=== PATIENT | female | born 1990 | race Caucasian/White ===

== ENCOUNTER 2016-10-11 18:30 | Emergency (ER) | payer OTHER ==
[2016-10-11 19:36] VITALS: BP 115/64
--- NOTE | 2016-10-11 19:55 | UC ---
Respiratory Complaint HPI - HPI Summary HPI Summary: The patient comes in today for: 1. Nose is stuffy, sore throat, headache, sinus congestion, sneezing: Onset: 3 days ago. Palliative/provocative: Nothing makes her symptoms better or worse. Quality: Sharp. Region: Frontal headache. Severity: 5/10 headache. Time: Comes and goes. Associated symptoms: Fever: none Cough: None. Rhinitis: Mucuous, clear Previous treatment; None. Itchy nose: NOne; Strep exposure: None. * - History of Current Complaint Chief Complaint: UCGeneralIllness Stated Complaint: SORE THROAT RUNNY NOSE HEADACHE COUGH Time Seen by Provider: 10/11/16 19:47 Hx Obtained From: Patient Hx Last Menstrual Period: 09/29/16 - Allergies/Home Medications Allergies/Adverse Reactions: Allergies Allergy/AdvReac Type Severity Reaction Status Date / Time Amoxicillin Allergy Severe Anaphylatic Verified 10/11/16 19:36 Shock Penicillins Allergy Severe Anaphylatic Verified 10/11/16 19:36 Shock Sulfa Drugs Allergy Severe Anaphylatic Verified 10/11/16 19:36 Shock PMH/Surg Hx/FS Hx/Imm Hx Previously Healthy: Yes Endocrine History Of: Denies: Diabetes, Thyroid Disease, Hyperthyroidism, Hypothyroidism, Dyslipidemia Cardiovascular History Of: Denies: Cardiac Disorders, Hypertension, Pacemaker/ICD, Myocardial Infarction , Congestive Heart Failure, Atrial Fibrillation, Deep Vein Thrombosis, Bleeding Disorders Respiratory History Of: Denies: COPD, Asthma, Bronchitis, Pneumonia, Pulmonary Embolism GI/ History Of: Denies: Gastroesophageal Reflux, Ulcer, Gastrointestinal Bleed, Gall Bladder Disease, Kidney Stones, Diverticulitis, Renal Disease, Urosepsis Neurological History Of: Denies: TIA, CVA, Dementia, Seizures, Migraine Psychological History Of: Denies: Anxiety, Depression, Bipolar Disorder, Schizophrenia, Post Traumatic Stress Disorder Cancer History Of: Denies: Lung Cancer, Colorectal Cancer, Breast Cancer, Cervical Cancer Other History Of: Negative For: HIV, Hepatitis B, Hepatitis C, Anticoagulant Therapy - Surgical History Surgical History: Yes Surgery Procedure, Year, and Place: nasal surgery - Family History Known Family History: Positive: Hypertension, Diabetes - Social History Occupation: Employed Full-time Alcohol Use: Occasionally Substance Use Type: None Smoking Status (MU): Never Smoked Tobacco Have You Smoked in the Last Year: No - Immunization History Most Recent Influenza Vaccination: not this season Review of Systems Constitutional: Negative Skin: Negative Eyes: Negative ENT: Sore Throat, Nasal Discharge Respiratory: Negative Cardiovascular: Negative Gastrointestinal: Negative Genitourinary: Negative All Other Systems Reviewed And Are Negative: Yes Physical Exam Triage Information Reviewed: Yes Appearance: Well-Appearing, No Pain Distress, Well-Nourished Vital Signs: Initial Vital Signs Temp 99.4 F 10/11/16 19:32 Pulse 82 10/11/16 19:32 Resp 16 10/11/16 19:32 BP 115/64 10/11/16 19:32 Pulse Ox 99 10/11/16 19:32 Vital Signs Reviewed: Yes Eyes: Positive: Conjunctiva Clear. Negative: Discharge ENT: Positive: Hearing grossly normal, Nasal congestion, Nasal drainage - Clear , Other: - Boggy and pale nasal mucosa. Negative: Pharyngeal erythema, TM bulging, TM dull, TM red, Tonsillar swelling, Tonsillar exudate Dental: Negative: Gross Decay/Caries @, Dental Fracture @ Neck: Positive: Supple, Nontender, No Lymphadenopathy. Negative: Nuchal Rigidity Cardiovascular: Positive: RRR, No Murmur Abdomen Description: Positive: Nontender, No Organomegaly, Soft. Negative: Distended, Guarding Musculoskeletal: Positive: Strength Intact, ROM Intact, No Edema Neurological: Positive: Alert, Muscle Tone Normal Psychological: Positive: Age Appropriate Behavior, Consolable Skin: Negative: rashes, breakdown UC Diagnostic Evaluation - Laboratory O2 Sat by Pulse Oximetry: 99 Respiratory Course/Dx - Course Course Of Treatment: Patient told that her symptoms and physical exam are more consistent with allergies and recommended treatment for that. She agreed. - Differential Dx/Diagnosis Provider Diagnoses: Allergic rhinitis Discharge - Discharge Plan Condition: Stable Disposition: HOME Patient Education Materials: Allergic Rhinitis (ED) Forms: *Work Release Referrals: Non Staff,Doctor [Primary Care Provider] - Additional Instructions: Please use the [id number] non-sedating antihistamine medications without a decongestant (Gabriela, Zyrtec, loratidine) during the day. At night, you can use the hydroxyzine. Use any asht-xou-ackepyr steroid nasal spray. If these don't help, you may start the Singulair.
== END 2016-10-11 20:17 | disposition home or self-care (01) ==
LOC: UCCORT 18:30
DX: J30.9 Allergic rhinitis, unspecified (principal); Z88.0 Allergy status to penicillin; Z88.2 Allergy status to sulfonamides
CPT/HCPCS: 99212; G0463

== ENCOUNTER 2017-02-19 11:09 | Emergency (ER) | payer OTHER ==
[2017-02-19 11:27] VITALS: BP 110/57
--- NOTE | 2017-02-19 11:38 | UC ---
Throat Pain/Nasal Steve HPI - HPI Summary HPI Summary: sore throat x 1 day + nasal congestion, no cough, no fever or chills - History of Current Complaint Chief Complaint: UCRespiratory Stated Complaint: SORE THROAT HEADACHE ACHY Time Seen by Provider: 02/19/17 11:31 Hx Obtained From: Patient Hx Last Menstrual Period: 6 mos ?: No Onset/Duration: Gradual Onset, Lasting Days - 1, Still Present Severity: Moderate Cough: None Associated Signs & Symptoms: Positive: Nasal Discharge. Negative: Dysphagia, FB Sensation, Drooling, Wheezing, Hoarseness, Sinus Discomfort, Fever, Rash - Allergies/Home Medications Allergies/Adverse Reactions: Allergies Allergy/AdvReac Type Severity Reaction Status Date / Time Amoxicillin Allergy Severe Anaphylatic Verified 02/19/17 11:26 Shock Penicillins Allergy Severe Anaphylatic Verified 02/19/17 11:26 Shock Sulfa Drugs Allergy Severe Anaphylatic Verified 02/19/17 11:26 Shock Home Medications: Home Medications Menthol (Mouth-Throat) [Cough Drops] 7 mg MT BID PRN 02/19/17 [History Confirmed 02/19/17] PMH/Surg Hx/FS Hx/Imm Hx Previously Healthy: Yes Other History Of: Negative For: HIV, Hepatitis B, Hepatitis C, Anticoagulant Therapy - Surgical History Surgical History: Yes Surgery Procedure, Year, and Place: nasal surgery - Family History Known Family History: Positive: Hypertension, Diabetes - Social History Alcohol Use: Occasionally Substance Use Type: None Smoking Status (MU): Never Smoked Tobacco Have You Smoked in the Last Year: No - Immunization History Most Recent Influenza Vaccination: not this season Review of Systems Constitutional: Chills, Fatigue Skin: Negative Eyes: Negative ENT: Sore Throat, Nasal Discharge Respiratory: Negative Cardiovascular: Negative Gastrointestinal: Negative Is Patient Immunocompromised?: No All Other Systems Reviewed And Are Negative: Yes Physical Exam Triage Information Reviewed: Yes Appearance: Well-Appearing, No Pain Distress, Well-Nourished Vital Signs: Initial Vital Signs Temp 99.6 F 02/19/17 11:19 Pulse 101 02/19/17 11:19 Resp 20 02/19/17 11:19 BP 110/57 02/19/17 11:19 Pulse Ox 98 02/19/17 11:19 Vital Signs Reviewed: Yes Eyes: Positive: Conjunctiva Clear ENT: Positive: Normal ENT inspection, Hearing grossly normal, Pharyngeal erythema, TMs normal Neck: Positive: Supple, Nontender, No Lymphadenopathy Respiratory: Positive: Chest non-tender, Lungs clear, Normal breath sounds Cardiovascular: Positive: Tachycardia Abdominal Exam: Normal Abdomen Description: Positive: Nontender, Soft Skin Exam: Normal Skin: Negative: rashes Throat Pain/Nasal Course/Dx - Differential Dx/Diagnosis Provider Diagnoses: pharyngitis Discharge - Discharge Plan Condition: Stable Disposition: HOME Patient Education Materials: Pharyngitis (ED) Referrals: Non Staff,Doctor [Primary Care Provider] - If Needed Additional Instructions: negative rapid strep viral sore throat cont. with rest, increase fluid, take Tylenol as needed for pain or fever follow up as needed
== END 2017-02-19 11:55 | disposition home or self-care (01) ==
LOC: UCCORT 11:09
DX: J02.9 Acute pharyngitis, unspecified (principal); R00.0 Tachycardia, unspecified; Z88.0 Allergy status to penicillin; Z88.2 Allergy status to sulfonamides
CPT/HCPCS: 87651; 99211; G0463

== ENCOUNTER 2017-10-25 14:15 | Emergency (ER) | payer OTHER ==
[2017-10-25 14:41] VITALS: BP 115/63
--- NOTE | 2017-10-25 14:57 | UC ---
Throat Pain/Nasal Steve HPI - HPI Summary HPI Summary: 27 y/o female presents to the urgent care c/o SORE THROAT, FEVER, HEAD ACHE, CHILLS X1 DAY - History of Current Complaint Chief Complaint: UCGeneralIllness Stated Complaint: SORE THROAT HEADACHE FEVER CHILLS Time Seen by Provider: 10/25/17 14:56 Hx Obtained From: Patient Hx Last Menstrual Period: 10/02/17 Onset/Duration: Gradual Onset, Lasting Days - 3 days, Still Present, Worse Since - today Severity: Moderate Pain Intensity: 6 Pain Scale Used: 0-10 Numeric Cough: None Associated Signs & Symptoms: Positive: Dysphagia, Fever - Epiglottits Risk Factors Epiglottis Risk Factors: Negative - Allergies/Home Medications Allergies/Adverse Reactions: Allergies Allergy/AdvReac Type Severity Reaction Status Date / Time MS Amoxicillin [Amoxicillin] Allergy Severe Anaphylatic Verified 02/19/17 11:26 Shock MS Penicillins [Penicillins] Allergy Severe Anaphylatic Verified 02/19/17 11:26 Shock MS Sulfa Drugs [Sulfa Drugs] Allergy Severe Anaphylatic Verified 02/19/17 11:26 Shock Home Medications: Home Medications D-Methorphan/PE/Acetaminophen [Day Multi-Symp Flu-Severe Cold] 1 each PO DAILY 10/25/17 [History Confirmed 10/25/17] Etonogestrel [Nexplanon] 68 mg IMPLANT DAILY 10/25/17 [History Confirmed ] PMH/Surg Hx/FS Hx/Imm Hx Previously Healthy: Yes - Pt denies PMHX Other History Of: Negative For: HIV, Hepatitis B, Hepatitis C, Anticoagulant Therapy - Surgical History Surgical History: Yes Surgery Procedure, Year, and Place: nasal surgery - Family History Known Family History: Positive: Hypertension, Diabetes Family History: Dyslipidemia - Social History Occupation: Employed Full-time Lives: With Family Alcohol Use: Occasionally Substance Use Type: None Smoking Status (MU): Never Smoked Tobacco Have You Smoked in the Last Year: No - Immunization History Most Recent Influenza Vaccination: not this season Review of Systems Constitutional: Fever, Chills Skin: Negative Eyes: Negative ENT: Sore Throat Respiratory: Negative Cardiovascular: Negative Gastrointestinal: Negative Genitourinary: Negative Motor: Negative Neurovascular: Negative Musculoskeletal: Negative Neurological: Negative Psychological: Negative Is Patient Immunocompromised?: No All Other Systems Reviewed And Are Negative: Yes Physical Exam - Summary Physical Exam Summary: VITAL SIGNS: Reviewed. GENERAL: Patient is a well developed and nourished female who is sitting comfortable in the examining table. Patient is not in any acute respiratory distress. HEAD AND FACE: No signs of trauma. No ecchymosis, hematomas or skull depressions. No sinus tenderness. EYES: PERRLA, EOMI x 2, No injected conjunctiva, no nystagmus. No photophobia. EARS: Hearing grossly intact. Ear canals and tympanic membranes are within normal limits. MOUTH: Positive pharynx with erythema, exudates, palatal petechiae. B/L tonsillar enlargement with exudate. Uvula in midline. NECK: Supple, trachea is midline, Positive anterior cervical lymphadenopathy, no JVD, no carotid bruit, no c-spine tenderness, neck with full ROM. No meningeal signs, no Kernig's or brudzinskis signs. CHEST: Symmetric, no tenderness at palpation LUNGS: Clear to auscultation bilaterally. No wheezing or crackles. CVS: Regular rate and rhythm, S1 and S2 present, no murmurs or gallops appreciated. ABDOMEN: Soft, non-tender. No signs of distention. No rebound no guarding, and no masses palpated. Bowel sounds are normal. EXTREMITIES: FROM in all major joints, no edema, no cyanosis or clubbing. NEURO: Alert and oriented x 3. No acute neurological deficits. Speech is normal and follows commands. SKIN: Dry and warm Triage Information Reviewed: Yes Vital Signs: Initial Vital Signs Temp 99.9 F 10/25/17 14:34 Pulse 103 10/25/17 14:34 Resp 15 10/25/17 14:34 BP 115/63 10/25/17 14:34 Pulse Ox 99 10/25/17 14:34 Throat Pain/Nasal Course/Dx - Differential Dx/Diagnosis Differential Diagnosis/HQI/PQRI: Laryngitis, Mononucleosis, Pharyngitis, Tonsillitis, Other Provider Diagnoses: 1- Viral phryngitis Discharge - Discharge Plan Condition: Stable Disposition: HOME Prescriptions: Ibuprofen TAB* [Motrin TAB* 800 MG] 800 mg PO Q6H PRN #20 tab PRN Reason: Pain Patient Education Materials: Pharyngitis (ED) Forms: *Work Release Referrals: TOYM Ontiveros [Primary Care Provider] - 3 Days Additional Instructions: 1-Please take ibuprofen PO q6-8hrs prn as instructed after meals to alleviate pain and swelling. Increase fluid intake, eat well, rest and avoid strenuous exercise 2- Use Chlorhexidine oropharygeal BID to alleviates pain. 3-If symptoms do not improve or worsen please return to the urgent care or f/u with your PCP 3 days for further evaluation and treatment. - Billing Disposition and Condition Condition: STABLE Disposition: HOME
== END 2017-10-25 15:38 | disposition home or self-care (01) ==
LOC: UCCORT 14:15
DX: J02.8 Acute pharyngitis due to other specified organisms (principal); B97.89 Other viral agents as the cause of diseases classified elsewhere; Z88.0 Allergy status to penicillin; Z88.2 Allergy status to sulfonamides
CPT/HCPCS: 87651; 99212; G0463

== ENCOUNTER 2017-10-27 14:25 | Emergency (ER) | payer OTHER ==
--- NOTE | 2017-10-27 14:32 | UC ---
Skin Complaint HPI - HPI Summary HPI Summary: 27 yo female presents with rash to hands and under tongue that she noticed earlier today. She also tells me that she was here about 3 days ago with a fever and sore throat and strep culture was negative. Son was recently dx'd with hand foot mouth. Denies fever, chills, cough, SOB, chest pain. - History of Current Complaint Time Seen by Provider: 10/27/17 14:32 Stated Complaint: SKIN COMP Hx Obtained From: Patient Hx Last Menstrual Period: 10/02/17 Onset/Duration: Gradual Onset - Allergy/Home Medications Allergies/Adverse Reactions: Allergies Allergy/AdvReac Type Severity Reaction Status Date / Time amoxicillin Allergy Anaphylatic Verified 10/27/17 14:33 Shock Penicillins Allergy Anaphylatic Verified 10/27/17 14:33 Shock Sulfa (Sulfonamide Allergy Anaphylatic Verified 10/27/17 14:33 Antibiotics) Shock Review of Systems Constitutional: Negative Skin: Rash Eyes: Negative ENT: Negative Respiratory: Negative Cardiovascular: Negative Gastrointestinal: Negative All Other Systems Reviewed And Are Negative: Yes PMH/Surg Hx/FS Hx/Imm Hx - Additional Past Medical History Additional PMH: None Previously Healthy: Yes Other History Of: Negative For: HIV, Hepatitis B, Hepatitis C, Anticoagulant Therapy - Surgical History Surgical History: Yes Surgery Procedure, Year, and Place: nasal surgery - Family History Known Family History: Positive: Hypertension, Diabetes Family History: Dyslipidemia - Social History Occupation: Employed Full-time Lives: With Family Alcohol Use: Occasionally Substance Use Type: None Smoking Status (MU): Never Smoked Tobacco Have You Smoked in the Last Year: No - Immunization History Most Recent Influenza Vaccination: not this season Physical Exam - Summary Physical Exam Summary: GENERAL: NAD. WDWN. No pain distress. SKIN: Small erythematous pustules on b/l hands and under tongue. NTTP. No streaking, bleeding, or drainage. NECK: Supple. Nontender. No lymphadenopathy. CHEST: No accessory muscle use. Breathing comfortably and in no distress. CV: RRR. Without m/r/g. NEURO: Alert. CN II-XII grossly intact. PSYCH: Age appropriate behavior. Triage Information Reviewed: Yes Vital Signs: Vital Signs: Temp Pulse Resp BP Pulse Ox 97.8 F 66 16 126/76 100 10/27/17 14:31 10/27/17 14:31 10/27/17 14:31 10/27/17 14:31 10/27/17 14:31 Course/Dx - Course Course Of Treatment: Suspect hand foot mouth. Advised that this is a viral illness and will run it's course. May take tylenol or ibuprofen for fever or discomfort - Diagnoses Provider Diagnoses: Hand foot mouth disease Discharge - Sign-Out/Discharge Documenting (check all that apply): Discharge/Admit/Transfer - Discharge Plan Condition: Stable Disposition: HOME Patient Education Materials: Hand, Foot, and Mouth Disease (ED) Forms: *Work Release Referrals: TOMY Ontiveros [Primary Care Provider] - Additional Instructions: If you develop a fever, shortness of breath, chest pain, new or worsening symptoms - please call your PCP or go to the ED. - Billing Disposition and Condition Condition: STABLE Disposition: HOME
[2017-10-27 14:37] VITALS: BP 126/76
== END 2017-10-27 14:53 | disposition home or self-care (01) ==
LOC: UCCORT 14:25
DX: B08.4 Enteroviral vesicular stomatitis with exanthem (principal); Z88.0 Allergy status to penicillin; Z88.2 Allergy status to sulfonamides
CPT/HCPCS: 99211; G0463

== ENCOUNTER 2018-01-03 10:18 | Emergency (ER) | payer OTHER ==
[2018-01-03 10:58] VITALS: BP 121/63
--- NOTE | 2018-01-03 11:20 | UC ---
Complaint Female HPI - HPI Summary HPI Summary: 27 yo female c/o last 2 days L vulvar pain and redness. - History Of Current Complaint Chief Complaint: UCGU Stated Complaint: URINARY Time Seen by Provider: 01/03/18 11:01 Hx Obtained From: Patient Hx Last Menstrual Period: 12/31/17 Pain Intensity: 2 - Allergies/Home Medications Allergies/Adverse Reactions: Allergies Allergy/AdvReac Type Severity Reaction Status Date / Time amoxicillin Allergy Anaphylatic Verified 01/03/18 10:51 Shock Penicillins Allergy Anaphylatic Verified 01/03/18 10:51 Shock Sulfa (Sulfonamide Allergy Anaphylatic Verified 01/03/18 10:51 Antibiotics) Shock PMH/Surg Hx/FS Hx/Imm Hx Previously Healthy: Yes Other History Of: Negative For: HIV, Hepatitis B, Hepatitis C, Anticoagulant Therapy - Surgical History Surgical History: Yes Surgery Procedure, Year, and Place: Deviated Nasal Septum, [place] - Family History Known Family History: Positive: Hypertension, Diabetes Family History: Dyslipidemia - Social History Alcohol Use: Occasionally Substance Use Type: None Smoking Status (MU): Never Smoked Tobacco Have You Smoked in the Last Year: No - Immunization History Most Recent Influenza Vaccination: not this season Review of Systems Constitutional: Negative Skin: Other - see hpi Eyes: Negative ENT: Negative - declines mouth sores Respiratory: Negative Cardiovascular: Negative Gastrointestinal: Negative Genitourinary: Negative, Other - see hpi Motor: Negative Neurovascular: Negative Musculoskeletal: Negative Neurological: Negative Psychological: Negative Is Patient Immunocompromised?: No All Other Systems Reviewed And Are Negative: Yes Physical Exam Triage Information Reviewed: Yes Appearance: Well-Nourished Vital Signs: Initial Vital Signs Temp 98.4 F 01/03/18 10:48 Pulse 72 01/03/18 10:48 Resp 16 01/03/18 10:48 BP 121/63 01/03/18 10:48 Pulse Ox 100 01/03/18 10:48 Vital Signs Reviewed: Yes Eye Exam: Normal - grossly nonfocal ENT Exam: Normal - grossly nonfocal Neck exam: Normal - grossly nonfocal Respiratory Exam: Normal - no tachypnea, no dyspnea. RR normal. Cardiovascular Exam: Normal - HR normal, nondiaphoretic. Abdominal Exam: Normal Abdomen Description: Positive: Nontender Pelvic Exam: Positive: Other - Normal female genitalia, shaved. L vulva + redness (c/w cellulitis), mild swelling but not specifically fluctuant, + local soft tissue swelling. No visible sores / ulcers. Vaginal vault unremarkable. Small amount of blood and clear mucus at cervix. Mild cear mucus in vault. Musculoskeletal Exam: Normal - moves x 4 ext's. Gait steady. Neurological Exam: Normal - grossly nonfocal Psychological Exam: Normal - conversing easily and appropriately Skin Exam: Normal - see above pelvic exam, otherwise no visible or reported sores or rashes Complaint Female Dx - Course Course Of Treatment: s/sx are suspicious for early bartholin's cyst with cellulitis. No ricardo sores appreciated. Not clinically c/w hsv at this time. Will test affirm / gc/ chlamydia, hsv antibodies igG / M. D/w Ms. Armstrong abx tx. She would like IM rocephin, we reviewed hx abx allergies, she is aware that risk may be increased. Will start doxycycline today, d/w pt usual precautions. Rx diflucan - to take as needed for vaginal yeast infection sx or if affirm positive, requiring treatment. She would like to be called with all of her test results. Does not want test -> "absolutely not" . Questions as posed answered to the best of my ability. - Differential Dx/Diagnosis Provider Diagnoses: Vulvitis, possible early cyst. vaginitis (possible) Discharge - Sign-Out/Discharge Documenting (check all that apply): Patient Departure - Discharge Plan Condition: Stable Disposition: HOME Prescriptions: DOXYcycline CAP(*) [DOXYcycline 100MG CAP(*)] 100 mg PO BID #20 cap Fluconazole 150 MG (NF) [Diflucan 150 mg (NF)] 150 mg PO ONCE #2 tab Patient Education Materials: Vaginitis (ED), Bartholin Cyst (ED) Referrals: [facility] [place] [facility] [Outside] No Primary Care Phys,NOPCP [Primary Care Provider] - Additional Instructions: Follow up with a primary care physician, recommend within the next couple weeks if possible. Please seek medical attention for worse or new problem in the meantime. Symptoms are suspicious for early bartholin's cyst (an infection) with cellulitis (skin infection / inflammation). Start antibiotics by mouth today. Take diflucan (antifungal) if you develop symptoms of a vaginal yeast infection , or if you are called with a positive yeast infection result. Avoid intercourse until your test results have been reviewed with you, and if necessary, further treated. - Billing Disposition and Condition Condition: STABLE Disposition: Home
[2018-01-03] MEDS ORDERED: Lidocaine 1% INJ* 10 MG/ML 30 ML SDV INJ ONE (11:46)
[2018-01-03] MEDS ORDERED: cefTRIAXone VIAL(*) 250 MG VIAL IM ONE (11:46)
[2018-01-03] MEDS ORDERED: Lidocaine 1% MPF* 2 ML VIAL ONE (12:11)
--- NOTE | 2018-01-04 13:17 | UC ---
- Progress Note Progress Note: neg dandre neg gardnerella please call pt - does not need to start Diflucan. rajni 01/04/2018 Discharge - Sign-Out/Discharge Documenting (check all that apply): Post-Discharge Follow Up - Discharge Plan Condition: Stable Disposition: HOME Prescriptions: DOXYcycline CAP(*) [DOXYcycline 100MG CAP(*)] 100 mg PO BID #20 cap Fluconazole 150 MG (NF) [Diflucan 150 mg (NF)] 150 mg PO ONCE #2 tab Patient Education Materials: Vaginitis (ED), Bartholin Cyst (ED) Referrals: [facility] [place] [facility] [Outside] No Primary Care Phys,NOPCP [Primary Care Provider] - Additional Instructions: Follow up with a primary care physician, recommend within the next couple weeks if possible. Please seek medical attention for worse or new problem in the meantime. Symptoms are suspicious for early bartholin's cyst (an infection) with cellulitis (skin infection / inflammation). Start antibiotics by mouth today. Take diflucan (antifungal) if you develop symptoms of a vaginal yeast infection , or if you are called with a positive yeast infection result. Avoid intercourse until your test results have been reviewed with you, and if necessary, further treated. - Billing Disposition and Condition Condition: STABLE Disposition: Home
[2018-01-06 13:27] LABS: Herpes Simplex Virus II IgG AB Negative (Negative)
--- NOTE | 2018-01-07 07:41 | ED ---
Progress - Progress Note Progress Note: Call patient. Positive HSV 1. She may just be a carrier or could be cause of her symptoms briefly described in the HPI. Diagnosis was bartholins on the visit. 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 Course/Dx - Course Course Of Treatment: s/sx are suspicious for early bartholin's cyst with cellulitis. No ricardo sores appreciated. Not clinically c/w hsv at this time. Will test affirm / gc/ chlamydia, hsv antibodies igG / M. D/w Ms. Armstrong abx tx. She would like IM rocephin, we reviewed hx abx allergies, she is aware that risk may be increased. Will start doxycycline today, d/w pt usual precautions. Rx diflucan - to take as needed for vaginal yeast infection sx or if affirm positive, requiring treatment. She would like to be called with all of her test results. Does not want test -> "absolutely not" . Questions as posed answered to the best of my ability. Discharge - Sign-Out/Discharge Documenting (check all that apply): Patient Departure - Discharge Plan Condition: Stable Disposition: HOME Prescriptions: DOXYcycline CAP(*) [DOXYcycline 100MG CAP(*)] 100 mg PO BID #20 cap Fluconazole 150 MG (NF) [Diflucan 150 mg (NF)] 150 mg PO ONCE #2 tab Patient Education Materials: Vaginitis (ED), Bartholin Cyst (ED) Referrals: [facility] [place] [facility] [Outside] No Primary Care Phys,NOPCP [Primary Care Provider] - Additional Instructions: Follow up with a primary care physician, recommend within the next couple weeks if possible. Please seek medical attention for worse or new problem in the meantime. Symptoms are suspicious for early bartholin's cyst (an infection) with cellulitis (skin infection / inflammation). Start antibiotics by mouth today. Take diflucan (antifungal) if you develop symptoms of a vaginal yeast infection , or if you are called with a positive yeast infection result. Avoid intercourse until your test results have been reviewed with you, and if necessary, further treated. - Billing Disposition and Condition Condition: STABLE Disposition: Home
== END 2018-01-03 12:31 | disposition home or self-care (01) ==
LOC: UCCORT 10:18
DX: N76.2 Acute vulvitis (principal); N76.0 Acute vaginitis; Z88.0 Allergy status to penicillin; Z88.2 Allergy status to sulfonamides
CPT/HCPCS: 86694; 86695; 86696; 87480; 87491; 87510; 87591; 96372; 99212; G0463; J0696

== ENCOUNTER 2018-08-27 11:45 | Emergency (ER) | payer OTHER ==
[2018-08-27 12:48] VITALS: BP 110/59
[2018-08-27] MEDS ORDERED: Fluorescein Sodium TOPICAL* 1 MG TEST STRIP OPHTHALMIC ONE (12:53)
[2018-08-27] MEDS ORDERED: Tetracaine 0.5% OPTH.SOL 4 ML* 1 DROP BTL RIGHT EYE ONE (12:53)
--- NOTE | 2018-08-27 12:58 | UC ---
Eye Complaint HPI - HPI Summary HPI Summary: 28-year-old woman comes in with a chief complaint of right eye irritation and drainage. 2 days ago patient woke up with her right eye irritated. Her sclerae IS [place]. No known trauma or foreign body. She does not have contacts. Does not have any upper respiratory tract infection symptoms. The lower eyelid is slightly swollen. Cool compresses help decrease the irritation. - History of Current Complaint Chief Complaint: UCEye Stated Complaint: RT EYE CONCERN Time Seen by Provider: 08/27/18 12:49 Hx Last Menstrual Period: Nexplanon Pain Intensity: 2 - Allergies/Home Medications Allergies/Adverse Reactions: Allergies Allergy/AdvReac Type Severity Reaction Status Date / Time amoxicillin Allergy Anaphylatic Verified 08/27/18 12:42 Shock Penicillins Allergy Anaphylatic Verified 08/27/18 12:42 Shock Sulfa (Sulfonamide Allergy Anaphylatic Verified 08/27/18 12:42 Antibiotics) Shock Home Medications: Home Medications Ibuprofen TAB* [Advil TAB*] 800 mg PO Q6H PRN 08/27/18 [History Confirmed ] PMH/Surg Hx/FS Hx/Imm Hx Previously Healthy: Yes Other History Of: Negative For: HIV, Hepatitis B, Hepatitis C, Anticoagulant Therapy - Surgical History Surgical History: Yes Surgery Procedure, Year, and Place: Deviated Nasal Septum, [place] - Family History Known Family History: Positive: Hypertension, Diabetes Family History: Dyslipidemia - Social History Alcohol Use: Occasionally Substance Use Type: None Smoking Status (MU): Never Smoked Tobacco Have You Smoked in the Last Year: No - Immunization History Most Recent Influenza Vaccination: not this season Review of Systems All Other Systems Reviewed And Are Negative: Yes Constitutional: Positive: Negative Skin: Positive: Negative Eyes: Positive: Drainage, Eye Redness, Other - SEE HPI ENT: Positive: Negative Respiratory: Positive: Negative Cardiovascular: Positive: Negative Gastrointestinal: Positive: Negative Motor: Positive: Negative Neurovascular: Positive: Negative Musculoskeletal: Positive: Negative Neurological: Positive: Negative Psychological: Positive: Negative Is Patient Immunocompromised?: No Physical Exam Triage Information Reviewed: Yes Appearance: Well-Appearing, No Pain Distress, Well-Nourished Vital Signs: Initial Vital Signs Temp 99.5 F 08/27/18 12:40 Pulse 88 08/27/18 12:40 Resp 18 08/27/18 12:40 BP 110/59 08/27/18 12:40 Pulse Ox 100 08/27/18 12:40 Vital Signs Reviewed: Yes Eyes: Positive: Conjunctiva Inflamed - RT, Discharge - RT, Other: - RT UPPER EYELID SWOLLEN. NO FB OR CORNEAL ABRAION SEEN WITH WOOD'S LAMP/FLUORESCEIN STAIN EXAM. ENT: Negative: Nasal congestion, Nasal drainage Neck exam: Normal Neck: Positive: Supple Respiratory: Positive: Lungs clear, Normal breath sounds, No respiratory distress Cardiovascular: Positive: RRR Musculoskeletal Exam: Normal Musculoskeletal: Positive: Strength Intact, ROM Intact Neurological Exam: Normal Neurological: Positive: Alert, Muscle Tone Normal Psychological Exam: Normal Psychological: Positive: Age Appropriate Behavior Skin Exam: Normal Eye Complaint Course/Dx - Differential Dx/Diagnosis Provider Diagnosis: Conjunctivitis, right eye, Hordeolum of right lower eyelid Discharge - Sign-Out/Discharge Documenting (check all that apply): Patient Departure All imaging exams completed and their final reports reviewed: No Studies - Discharge Plan Condition: Stable Disposition: HOME Prescriptions: Tobramycin 0.3% OPHTH.ADELE* 1 drop RIGHT EYE Q4H #1 btl Patient Education Materials: Stye (ED), Conjunctivitis (ED) Referrals: Marie Romano MD [Primary Care Provider] - Additional Instructions: FOLLOW UP WITH OPHTHALMOLOGY IF NOT COMPLETELY IMPROVED. GET RECHECKED FOR ANY WORSENING OF YOUR CONDITION OR QUESTIONS OR CONCERNS. - Billing Disposition and Condition Condition: STABLE Disposition: Home
== END 2018-08-27 13:23 | disposition home or self-care (01) ==
LOC: UCCORT 11:45
DX: H10.9 Unspecified conjunctivitis (principal); H00.012 Hordeolum externum right lower eyelid; Z88.0 Allergy status to penicillin; Z88.2 Allergy status to sulfonamides
CPT/HCPCS: 99212; A9270-GY; G0463

== ENCOUNTER 2018-11-06 09:21 | Emergency (ER) | payer OTHER ==
[2018-11-06 10:01] VITALS: BP 105/44
--- NOTE | 2018-11-06 11:19 | UC ---
Abdominal Pain Female HPI - HPI Summary HPI Summary: Persistent RLQ pain since yesterday, with history of 5 days without stool passage. Typically passes one stool daily with ease. Vomited x 1 last evening after drinking a lot of juice. Had small amount of runny stool this morning. 2 weeks ago swapped out nexplanon for an oral contraceptive. Last sexually active one year ago. Has used pepto in the past several days without effect. 6 days ago took one day of antiviral for an outbreak of genital herpes. Not a primary outbreak (second ever). past colonoscopy with diagnsosis of IBS - History of Current Complaint Chief Complaint: UCGI Stated Complaint: LOWER RIGHT SIDE ABD PAIN Time Seen by Provider: 11/06/18 11:10 Hx Obtained From: Patient Hx Last Menstrual Period: 10/18/18 Onset/Duration: Gradual Onset, Lasting Days - 6 Timing: Intermittent Episodes Lasting: - hours Severity Initially: Moderate Severity Currently: Moderate Pain Intensity: 5 Location: Diffuse, Discrete At: RLQ - states RLQ pain but on exam is tender in the RUQ Radiates: No Character: Colicy, Cramping Aggravating Factor(s): Food, Movement Alleviating Factor(s): Position Associated Signs and Symptoms: Positive: Constipation. Negative: Cough, Blood in Stool, Urinary Symptoms, Vaginal Discharge, Nausea - Risk Factors Ectopic Risk Factor: Maternal Age ^ 30 Allergies/Adverse Reactions: Allergies Allergy/AdvReac Type Severity Reaction Status Date / Time amoxicillin Allergy Anaphylatic Verified 11/06/18 10:01 Shock Penicillins Allergy Anaphylatic Verified 11/06/18 10:01 Shock Sulfa (Sulfonamide Allergy Anaphylatic Verified 11/06/18 10:01 Antibiotics) Shock Home Medications: Home Medications Simethicone [Gas-X] 1 tab PO ONCE 11/06/18 [History Confirmed 11/06/18] PMH/Surg Hx/FS Hx/Imm Hx Previously Healthy: Yes - overweight Other History Of: Negative For: HIV, Hepatitis B, Hepatitis C, Anticoagulant Therapy - Surgical History Surgical History: Yes Surgery Procedure, Year, and Place: Deviated Nasal Septum, 2015, [place] - Family History Known Family History: Positive: Hypertension, Diabetes Family History: Dyslipidemia - Social History 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 Negative: Chest Pain Gastrointestinal: Positive: Abdominal Pain, Vomiting, Nausea. Negative: Diarrhea Genitourinary: Negative: Dysuria, Frequency, Urgency, Vaginal/Penile Discharge, Abnormal Bleeding Motor: Positive: Negative Neurovascular: Positive: Negative Musculoskeletal: Positive: Negative Neurological: Positive: Negative Psychological: Positive: Negative Is Patient Immunocompromised?: No Physical Exam Triage Information Reviewed: Yes Appearance: Well-Appearing, Pain Distress - mild to moderate Vital Signs: Initial Vital Signs Temp 99 F 11/06/18 09:54 Pulse 77 11/06/18 09:54 Resp 18 11/06/18 09:54 BP 105/44 11/06/18 09:54 Pulse Ox 100 11/06/18 09:54 Eyes: Positive: Conjunctiva Clear ENT: Positive: Pharynx normal Dental Exam: Normal Neck: Positive: Supple, Nontender, No Lymphadenopathy Respiratory: Positive: Lungs clear, Normal breath sounds Cardiovascular: Positive: RRR, No Murmur Abdomen Description: Positive: No Organomegaly, Soft, Distended, Guarding - voluntary guarding RUQ. Negative: CVA Tenderness (R), CVA Tenderness (L) Bowel Sounds: Positive: Hypoactive Pelvic Exam: Positive: Bimanual Exam Normal - no tenderness, no masses. Musculoskeletal Exam: Normal Abd Pain Female Course/Dx - Course Course Of Treatment: miralax and dulcolax for constipation, increase fluids, monitor symptoms and return for evaluation if not improving. - Differential Dx/Diagnosis Differential Diagnosis: Bowel Obstruction, Constipation, Other - IBS Provider Diagnosis: Constipation Discharge - Sign-Out/Discharge Documenting (check all that apply): Patient Departure All imaging exams completed and their final reports reviewed: Yes - Discharge Plan Condition: Stable Disposition: HOME Patient Education Materials: Constipation (ED), High Fiber Diet (ED) Referrals: Marie Romano MD [Primary Care Provider] - Additional Instructions: Suggested regimen to relieve constipation: Begin with 2 doses of prpylene glycol = miralax, taking a double dose to start. Ensure a high intake of clear fluids, including soup broth. If you do not have a stool passage in several hours, try either dulcolax talbets or milk of magnesia, taking 2 tablespoonfuls. Miralax dose can be repeat up to 3 times today, and used daily to promote good stool passage. - Billing Disposition and Condition Condition: STABLE Disposition: Home
== END 2018-11-06 12:13 | disposition home or self-care (01) ==
LOC: UCCORT 09:21
DX: K59.00 Constipation, unspecified (principal); Z88.0 Allergy status to penicillin; Z88.2 Allergy status to sulfonamides; Z87.19 Personal history of other diseases of the digestive system
CPT/HCPCS: 74018; 99211; G0463